=== PATIENT | female | born 1955 | race Native Hawaiian/Other Pacific Islander ===

== ENCOUNTER 2021-05-18 16:19 | Emergency (ER) | payer OTHER ==
[~2021-05-18] VITALS: Ht 157.5 cm; Wt 106.6 kg
[~2021-05-18 16:19] MED LIST: LISI10TA11 PO
[2021-05-18 17:33] LABS: PLATELET COUNT 230 K/uL (152-353)
[2021-05-18 18:05] LABS: POTASSIUM 3.7 mmol/L (3.6-5.2); SODIUM 139 mmol/L (136-145)
[2021-05-18 19:55] VITALS: BP 154/85; TEMP 98
== END 2021-05-18 19:55 | disposition home or self-care (01) ==
LOC: ED 16:19
PROVIDERS: Emergency Medicine Emergency Medical Services
DX: J20.9 Acute bronchitis, unspecified (principal); U07.1 COVID-19; F17.210 Nicotine dependence, cigarettes, uncomplicated
CPT/HCPCS: 36415; 80053; 83735; 84484; 85027; 85379; 85610; 87040; 87077; 87185; 87205; 87635; 93005; 96360; 96365; 96375; 99284; J0696; J1100; U0003

== ENCOUNTER 2021-08-06 10:09 | Emergency (ER) | payer OTHER ==
[~2021-08-06] VITALS: Ht 157.5 cm; Wt 106.6 kg
[2021-08-06 10:47] LABS: PLATELET COUNT 253 K/uL (152-353)
[2021-08-06 10:56] LABS: POTASSIUM 3.7 mmol/L (3.6-5.2)
[2021-08-06 11:35] VITALS: BP 175/80; TEMP 97.8
== END 2021-08-06 11:40 | disposition home or self-care (01) ==
LOC: ED 10:09
PROVIDERS: Emergency Medicine
DX: I10 Essential (primary) hypertension (principal); E66.8 Other obesity; M19.072 Primary osteoarthritis, left ankle and foot
CPT/HCPCS: 80048; 84550; 85027; 96372; 99283; J1885

== ENCOUNTER 2022-03-24 11:53 | Outpatient (CLI) | payer OTHER ==
[2022-03-24 12:14] LABS: PLATELET COUNT 236 K/uL (152-353)
[2022-03-24 12:29] LABS: POTASSIUM 3.6 mmol/L (3.6-5.2)
== END 2022-03-24 18:58 | disposition home or self-care (01) ==
LOC: LABW 11:53
PROVIDERS: ATTEND Physician Assistant
DX: R53.83 Other fatigue (principal); R06.89 Other abnormalities of breathing; I10 Essential (primary) hypertension; E53.8 Deficiency of other specified B group vitamins; E55.9 Vitamin D deficiency, unspecified; M13.88 Other specified arthritis, other site
CPT/HCPCS: 36415; 80053; 80061; 82306; 82607; 82746; 83880; 84436; 84443; 84480; 85027; 85652; 86038; 86140; 86430

== ENCOUNTER 2022-04-13 10:37 | Outpatient (CLI) | payer OTHER | END 2022-04-13 19:00 | disposition home or self-care (01) | LOC: RESP 10:37 | PROVIDERS: ATTEND Physician Assistant | DX: R53.83 Other fatigue (principal); Z79.899 Other long term (current) drug therapy ==

== ENCOUNTER 2022-04-28 13:38 | Outpatient (CLI) | payer OTHER | END 2022-04-28 19:10 | disposition home or self-care (01) | LOC: RAD 13:38 | PROVIDERS: ATTEND Nurse Practitioner Family | DX: M06.4 Inflammatory polyarthropathy (principal) ==

== ENCOUNTER 2022-06-17 10:11 | Outpatient (CLI) | payer OTHER ==
[2022-06-17 10:29] LABS: PLATELET COUNT 266 K/uL (152-353)
[2022-06-17 11:31] LABS: POTASSIUM 3.7 mmol/L (3.6-5.2)
== END 2022-06-17 23:09 | disposition home or self-care (01) ==
LOC: LABW 10:11
PROVIDERS: ATTEND Nurse Practitioner Family
DX: L40.0 Psoriasis vulgaris (principal)
CPT/HCPCS: 36415; 80053; 85027

== ENCOUNTER → 2022-11-18 | Outpatient (CLI) | payer OTHER | LOC: CT 13:21 | PROVIDERS: ATTEND Physician Assistant | DX: R51.9 Headache, unspecified (principal); Z86.73 Personal history of transient ischemic attack (TIA), and cerebral infarction without residual deficits; Z09 Encounter for follow-up examination after completed treatment for conditions other than malignant neoplasm; M06.4 Inflammatory polyarthropathy; M15.0 Primary generalized (osteo)arthritis ==

== ENCOUNTER 2022-12-15 13:39 | Outpatient (CLI) | payer OTHER | END 2022-12-15 18:58 | disposition home or self-care (01) | LOC: MAMMO 13:39 | PROVIDERS: ATTEND Physician Assistant | DX: Z12.31 Encounter for screening mammogram for malignant neoplasm of breast (principal) ==

== ENCOUNTER 2023-01-10 13:33 | Outpatient (CLI) | payer OTHER | END 2023-01-10 19:10 | disposition home or self-care (01) | LOC: MAMMO 13:33 | PROVIDERS: ATTEND Physician Assistant | DX: R92.8 Other abnormal and inconclusive findings on diagnostic imaging of breast (principal) ==